=== PATIENT | male | born 1985 | race Caucasian/White ===

== ENCOUNTER 2022-03-12 07:24 | Emergency (ER) | payer MEDICAID ==
[~2022-03-12] VITALS: Ht 190.5 cm; Wt 75.9 kg
[2022-03-12 07:30] VITALS: BP 123/81
[2022-03-12 08:05] LABS: BASOPHILS # (AUTO) 0.1 X10'3 (0-0.2); BASOPHILS % (AUTO) 0.9 % (0-1); EOSINOPHILS # (AUTO) 0.1 X10'3 (0-0.9); EOSINOPHILS % (AUTO) 0.8 % (0-6); HEMATOCRIT 44.6 % (42.0-52.0); HEMOGLOBIN 14.9 g/dl (14.0-17.9); LYMPHOCYTES # (AUTO) 1.5 X10'3 (1.1-4.8); LYMPHOCYTES % (AUTO) 22.5 % (21-51); MEAN CORPUSCULAR HEMOGLOBIN 29.7 PG (27.0-31.0); MEAN CORPUSCULAR HGB CONC 33.3 g/dL (33.0-36.5); MEAN CORPUSCULAR VOLUME 89.1 FL (78-98); MEAN PLATELET VOLUME 7.8 FL (7.4-10.4); MONOCYTES # (AUTO) 0.5 X10'3 (0-0.9); MONOCYTES % (AUTO) 7.3 % (2-12); NEUTROPHILS # (AUTO) 4.6 X10'3 (1.8-7.7); NEUTROPHILS % (AUTO) 68.5 % (42-75); PLATELET COUNT 240 X10'3 (140-440); RED CELL DISTRIBUTION WIDTH 13.3 % (11.5-14.5); WHITE BLOOD COUNT 6.8 X10'3 (4.5-11.0)
[2022-03-12 08:20] LABS: ALANINE AMINOTRANSFERASE 30 U/L (12-78); ALBUMIN 4.2 G/DL (3.4-5.0); ALBUMIN/GLOBULIN RATIO 1.3 (1.1-1.5); ALKALINE PHOSPHATASE 105 IU/L (46-116); ANION GAP 18 (8-16); ASPARTATE AMINO TRANSFERASE 23 U/L (10-37); BILIRUBIN,TOTAL 0.7 MG/DL (0.1-1.0); BLOOD UREA NITROGEN 18 MG/DL (7-18); BUN/CREATININE RATIO 14.1 (5.4-32.0); CALCIUM 9.3 MG/DL (8.5-10.1); CHLORIDE 105 MMOL/L (99-107); CREATININE 1.28 MG/DL (0.60-1.10); GLUCOSE 149 MG/DL (70-104); LIPASE 176 U/L (73-393); POTASSIUM 3.3 MMOL/L (3.5-5.1); SODIUM 142 MMOL/L (135-145); TOTAL CARBON DIOXIDE 18.7 MMOL/L (24-32); TOTAL PROTEIN 7.4 G/DL (6.4-8.2); eGFR 64 ML/MIN
[2022-03-12] MEDS ORDERED: ringers solution, lacted 1,000 ML IV ONE ×2 (09:25→10:00)
[2022-03-12] MEDS ORDERED: meclizine 12.5mg tablet PO ONE (09:25)
[2022-03-12] MEDS ORDERED: MECL-159 PO (11:27)
--- NOTE | 2022-03-12 12:00 | NUR ---
DISCUSSED CONCERN OF PT ELEVATED BG AND OTHER ABNORMAL LABS. MD AT BEDSIDE TO DISCUSS LAB VALUES AND GAVE VERBAL ORDER FOR HGB A1C AND POC BG. ORDERS ENTTERED AND COMPLETED.
[2022-03-12 12:22] LABS: HEMOGLOBIN A1C 5.3 % (4.5-6.2)
--- NOTE | 2022-03-12 12:26 | NUR ---
PT VERBALIZED UNDERSTANDING TO CALL LATER TODAY FOR PENDING LAB INFO.
== END 2022-03-12 12:28 | disposition home or self-care (01) ==
LOC: ER 07:25
DX: E86.0 Dehydration (principal); R42 Dizziness and giddiness
CPT/HCPCS: 36415; 80053; 82948; 83036; 83690; 85025; 93005; 99284; J7030; J7120; J8597